=== PATIENT | female | born 1965 | race Caucasian/White ===

== ENCOUNTER 2018-08-06 06:20 | Day surgery (SDC) | payer BC ==
[2018-08-06] MEDS ORDERED: ONDANSETRON 4 MG INJ (07:00)
[2018-08-06] MEDS ORDERED: CLINDAMYCIN 900 MG/50 ML D5W IVPB IVPB (07:00)
[2018-08-06] MEDS ORDERED: MIDAZOLAM 1 MG/ML 2 ML INJ (07:29)
[2018-08-06] MEDS ORDERED: LEVALBUTEROL (NEB) 1.25 MG/0.5 ML AMP HHN (07:30)
[2018-08-06] MEDS ORDERED: FENTAnyl 50 MCG/ML VIAL IV ×2 (07:30)
[2018-08-06] MEDS ORDERED: HYDROmorphONE 1 MG/5 ML IV SYRINGE IV ×3 (07:30)
[2018-08-06] MEDS ORDERED: LABETALOL HCL 20MG INJ IV (07:30)
[2018-08-06] MEDS ORDERED: MIDAZOLAM 1 MG/ML 2 ML INJ IV (07:30)
[2018-08-06] MEDS ORDERED: ONDANSETRON 4 MG INJ IV (07:30)
[2018-08-06] MEDS ORDERED: IPRATROPIUM (NEB) 0.5 MG/2.5 ML AMP HHN (07:30)
[2018-08-06] MEDS ORDERED: DIPHENHYDRAMINE 50 MG INJ IV (07:30)
[2018-08-06] MEDS ORDERED: MEPERIDINE 25 MG INJ IV (07:30)
[2018-08-06] MEDS ORDERED: FENTAnyl 50 MCG/ML VIAL (07:30)
[2018-08-06] MEDS ORDERED: hydrALAzine 20 MG INJ IV (07:30)
[2018-08-06] MEDS: LIDOCAINE 1% (MPF) 30 ML INJ (07:32)
[2018-08-06] MEDS: BUPIVACAINE 0.5% (SDV) 30 ML INJ (07:56)
[2018-08-06] MEDS: DEXAMETHASONE 4 MG/ML 1 ML INJ (07:56)
[2018-08-06] MEDS ORDERED: PROPOFOL 20 ML (08:03)
[2018-08-06] MEDS ORDERED: METOCLOPRAMIDE 10 MG INJ (08:03)
[2018-08-06] MEDS ORDERED: LIDOCAINE 2% (SDV) 5 ML INJ (08:04)
== END 2018-08-06 13:00 | disposition home or self-care (01) ==
LOC: SDS 06:20
DX: M20.41 Other hammer toe(s) (acquired), right foot (principal); I10 Essential (primary) hypertension; E11.9 Type 2 diabetes mellitus without complications; E78.5 Hyperlipidemia, unspecified; J45.909 Unspecified asthma, uncomplicated; E03.9 Hypothyroidism, unspecified; Z87.891 Personal history of nicotine dependence
CPT/HCPCS: 28285; 82962; 88304; 88311